=== PATIENT | female | born 1995 | race African-American/Black ===

== ENCOUNTER 2016-12-17 15:35 | Emergency (ER) | payer OTHER ==
[~2016-12-17] VITALS: Ht 162.6 cm; Wt 110.0 kg
[2016-12-17 15:45] VITALS: Ht 162.6 cm; Wt 110.0 kg
--- NOTE | 2016-12-17 16:28 | DIAGNOSTIC IMAGING REPORT ---
LEFT ANKLE MIN 3 VIEWS ROUTINE CLINICAL HISTORY: Left ankle pain following fall. COMPARISON: None FINDINGS: Alignment of left ankle is anatomic. There is no acute fracture. Talar dome is intact. IMPRESSION: No acute fracture or dislocation of the left ankle. Electronically signed by: Garth Brownlee M.D. 12/17/2016 4:26 PM Dictated Date/Time: 12/17/2016 4:24 PM
--- NOTE | 2016-12-17 16:31 | DIAGNOSTIC IMAGING REPORT ---
LEFT KNEE 3 VIEWS CLINICAL HISTORY: Left knee pain following injury. COMPARISON: None FINDINGS: Alignment of the left knee is anatomic. There is no acute fracture. No joint effusion is present. Joint spaces are preserved. IMPRESSION: No acute fracture or dislocation of the left knee. Electronically signed by: Garth Brownlee M.D. 12/17/2016 4:29 PM Dictated Date/Time: 12/17/2016 4:29 PM
--- NOTE | 2016-12-17 16:48 | EMERGENCY ROOM VISIT NOTE ---
ED Visit Note First contact with patient: 15:36 CHIEF COMPLAINT: Knee pain HISTORY OF PRESENT ILLNESS: This 20-year-old female patient presents to the emergency department via BLS after sustaining an injury to the left knee and ankle just prior to arrival. The patient states that she slipped on a wet floor , landing onto her left knee. She reports she also inverted the left ankle when this occurred. The patient denies any other injuries. The patient reports swelling in the knee, but denies bruising. There is pain over the anterior aspect of the knee. They rate the pain as sharp and 6/10. The patient states they are able to walk on it. No numbness or tingling. No previous injuries to this knee. No ankle, foot or hip pain. REVIEW OF SYSTEMS: A 6 system review of systems was completed with positives and pertinent negatives listed in the HPI. ALLERGIES: No known drug allergies MEDICATIONS: No chronic medications PMH: No significant past medical history. SOCIAL HISTORY: The patient is a [employer] student and lives with roommates. PHYSICAL EXAM: Vital Signs: Reviewed Nurse's notes, vital signs stable. GENERAL : This is a 20-year-old female, no acute distress, but appears in pain, well- developed, well-nourished. MENTAL STATUS: Alert, oriented to person place and time, and cooperative. MUSCULOSKELETAL: The left knee is not swollen. There is no ecchymosis. There is no joint effusion present. The patient is tender along the anterior aspect of the knee. There is no joint line tenderness. The patella does not subluxate. Range of motion is full. Strength of the quads and hamstrings is 5/5. Carol's is negative. Jina's and Anterior Drawer tests are negative. There is no laxity with varus and valgus stressing. There is minimal tenderness to the left lateral malleolus. Full range of motion and strength 5/5 in the left ankle. The foot and toes are warm and well-perfused. Dorsalis pedis pulse 2+. Sensation to pain and light touch is intact. Capillary refill less than 2 seconds. RADIOGRAPHIC FINDINGS: LEFT KNEE 3 VIEWS FINDINGS: Alignment of the left knee is anatomic. There is no acute fracture. No joint effusion is present. Joint spaces are preserved. IMPRESSION: No acute fracture or dislocation of the left knee. LEFT ANKLE MIN 3 VIEWS ROUTINE FINDINGS: Alignment of left ankle is anatomic. There is no acute fracture. Talar dome is intact. IMPRESSION: No acute fracture or dislocation of the left ankle. EMERGENCY DEPARTMENT COURSE: I examined the patient. X-rays of the left knee and ankle were reviewed by myself and read by radiology and reveal no acute findings. The patient is ambulating without difficulty. Conservative measures were discussed. An Thomas wrap was applied to the left knee. She verbalized understanding of my assessment and treatment plan. The patient was discharged home in good condition. DIAGNOSIS: Fall, left knee pain Current/Historical Medications No Active Prescriptions or Reported Meds Allergies Coded Allergies: No Known Allergies (Unverified , 12/17/16) Vital Signs Date Time Temp Pulse Resp B/P Pulse Ox O2 Delivery O2 Flow Rate FiO2 12/17/16 17:05 75 18 145/87 100 12/17/16 15:45 70 18 129/103 100 Room Air Departure Information Impression Primary Impression: Contusion of left knee Additional Impression: Left ankle pain Dispostion Home / Self-Care Condition GOOD Prescriptions No Active Prescriptions or Reported Meds Referrals [facility] (PCP) Patient Instructions My [facility] Additional Instructions You have been treated in the Emergency Department for Knee Pain. For pain control, you can use the following [id number] medicines (if >12 yo): - Regular strength (325mg/tab) Tylenol (acetaminophen) 2 tabs every 4-6 hours as needed. Do not exceed 12 tablets in a 24 hour period. Avoid taking more than 4 grams (4000 mg) of Tylenol per day. This includes any other sources of acetaminophen you may take on a regular basis. - Regular strength (200 mg/tab) Advil (ibuprofen) 1-2 tabs every 4-6 hours as needed. Do not exceed a dose of 3200 mg per day. If this is a recent injury (<24 hrs), ice can be applied to the area of pain for the first 3 days to help decrease pain and inflammation. Ice massages can be performed by freezing water in a paper cup, peeling back the cup to expose the ice and then massaging over the affected area. Follow-up with [facility] or your own primary care provider as needed. Return to the Emergency Department if your current symptoms worsen despite treatment course outlined above. Problem Qualifiers Primary Impression: Contusion of left knee Encounter type: initial encounter Qualified Codes: S80.02XA - Contusion of left knee, initial encounter Additional Impression: Left ankle pain Chronicity: acute Qualified Codes: M25.572 - Pain in left ankle and joints of left foot
[2016-12-17 17:05] VITALS: BP 145/87; PULSE 75; O2SAT 100
== END 2016-12-17 17:05 | disposition home or self-care (01) ==
LOC: C.EDD 15:35
DX: S80.02XA Contusion of left knee, initial encounter (principal); M25.562 Pain in left knee; M25.572 Pain in left ankle and joints of left foot; W01.0XXA Fall on same level from slipping, tripping and stumbling without subsequent striking against object, initial encounter